=== PATIENT | female | born 1980 | race Caucasian/White ===

== ENCOUNTER → 2017-08-21 | Outpatient (CLI) | payer OTHER ==
[~2017-08-21] MED LIST: IBUP-1223 PO; None at this Time; OXYC-302 PO
== END | disposition home or self-care (01) ==
LOC: STAR 10:35
PROVIDERS: ATTEND Obstetrics & Gynecology
DX: Z02.9 Encounter for administrative examinations, unspecified (principal)

== ENCOUNTER 2017-08-29 10:51 | Inpatient (IN) | payer OTHER ==
[~2017-08-29] VITALS: Ht 160 cm; Wt 66.6 kg
[~2017-08-29 10:51] MED LIST changes: +GLYCOPYRROLATE 0.2MG/1ML, 5ML ONE; -IBUP-1223 PO; +NEOSTIGMINE 1 MG/ML, 10ML ONE; -OXYC-302 PO
[2017-08-29 12:12] VITALS: BP 105/68
[2017-08-29] MEDS ORDERED: LACTATED RINGERS 1,000 ML IV SCH ×2 (12:15→19:30)
[2017-08-29] MEDS ORDERED: OXYcodone IR 5MG TABLET PO ONE (12:30)
[2017-08-29] MEDS ORDERED: GABAPENTIN 300 MG CAPSULE PO ONE (12:30)
[2017-08-29] MEDS ORDERED: ONDANSETRON ODT 8 MG PO ONE (12:30)
[2017-08-29] MEDS ORDERED: ACETAMINOPHEN 500 MG TABLET PO ONE (12:30)
[2017-08-29] MEDS ORDERED: MIDAZOLAM 1 MG/ML, 2ML ONE (12:40)
[2017-08-29] MEDS ORDERED: FLUORESCEIN SODIUM 500 MG/5 ML ONE (12:44)
[2017-08-29] MEDS ORDERED: EPINEPHRINE 1 MG/ML, 1ML ONE (12:44)
[2017-08-29 12:58] LABS: HCG UR SG 1.009 (1.003-1.030)
[2017-08-29] MEDS ORDERED: ROCURONIUM 10MG/ML,5ML ONE (13:19)
[2017-08-29] MEDS ORDERED: CEFAZOLIN 1,000 MG ONE ×2 (13:19)
[2017-08-29] MEDS ORDERED: PROPOFOL 10 MG/ML, 20ML ONE (13:19)
[2017-08-29] MEDS ORDERED: DEXAMETHASONE 4 MG/ML, 1ML ONE ×2 (13:19→13:20)
[2017-08-29] MEDS ORDERED: FENTANYL PF 250 MCG/5ML ONE (13:19)
[2017-08-29] MEDS ORDERED: PROMETHAZINE 25 MG/ML, 1ML IV PRN (13:30)
[2017-08-29] MEDS ORDERED: MORPHINE SULFATE 4 MG/ML, 1ML IVPush PRN (13:30)
[2017-08-29] MEDS ORDERED: ALBUTEROL SULFATE 2.5 MG/3 ML NPPB PRN (13:30)
[2017-08-29] MEDS ORDERED: MEPERIDINE/PF 25MG/0.5ML IVPush PRN (13:30)
[2017-08-29] MEDS ORDERED: hydrALAzine 20 MG/ML, 1ML IV PRN (13:30)
[2017-08-29] MEDS ORDERED: FENTANYL PF 100 MCG/2ML IV PRN (13:30)
[2017-08-29] MEDS ORDERED: METOPROLOL 1 MG/ML, 5ML IV PRN (13:30)
[2017-08-29] MEDS ORDERED: LABETALOL 5MG/ML, 20ML IV PRN (13:30)
[2017-08-29] MEDS ORDERED: HALOPERIDOL 5 MG/ML IV PRN (13:30)
[2017-08-29] MEDS ORDERED: EPHEDRINE 50 MG/ML, 1ML IVPush PRN (13:30)
[2017-08-29] MEDS ORDERED: OXYcodone 5 MG/5 ML ORAL.SOL UDC PO PRN (13:30)
[2017-08-29] MEDS ORDERED: BUPIVACAINE/PF 0.5% INFIL ONE (14:06)
[2017-08-29] MEDS ORDERED: INDIGO CARMINE 0.8%, 5ML ONE (15:04)
[2017-08-29] MEDS ORDERED: ONDANSETRON 2MG/ML, 2ML ONE (17:20)
[2017-08-29] MEDS ORDERED: ONDANSETRON 2MG/ML, 2ML IVPush ONE (17:30)
[2017-08-29] MEDS ORDERED: ACETAMINOPHEN 650 MG SUPP PR PRN (19:30)
[2017-08-29] MEDS ORDERED: INSTRUCTION SEE COMMENTS XX PRN (19:30)
[2017-08-29] MEDS ORDERED: ONDANSETRON 2MG/ML, 2ML IV PRN (19:30)
[2017-08-29] MEDS ORDERED: ACETAMINOPHEN 325 MG TABLET PO PRN (19:30)
[2017-08-29] MEDS ORDERED: OXYcodone/APAP 5/325MG TABLET PO PRN (19:30)
[2017-08-29 19:35] VITALS: BP 112/70
[2017-08-29] MEDS ORDERED: ZOLPIDEM 5MG TABLET PO PRN (21:00)
[2017-08-29] MEDS: SIMETHICONE 80 MG CHEW TAB PO SCH (21:11)
[2017-08-29] MEDS: IBUPROFEN 600 MG TABLET PO SCH (21:11)
[2017-08-29] MEDS: SODIUM CHLORIDE FLUSH 10ML SYR IVF SCH (21:11)
[2017-08-29 23:44] VITALS: BP 90/56
[2017-08-30 03:58] VITALS: BP 93/56
[2017-08-30] MEDS: IBUPROFEN 600 MG TABLET PO SCH (07:35)
[2017-08-30 07:58] VITALS: BP 103/65
[2017-08-30] MEDS: SODIUM CHLORIDE FLUSH 10ML SYR IVF SCH (09:40)
[2017-08-30] MEDS: SIMETHICONE 80 MG CHEW TAB PO SCH (09:40)
[2017-08-30] MEDS ORDERED: OXYC-302 PO (11:27)
[2017-08-30] MEDS ORDERED: IBUP-1223 PO (11:27)
== END 2017-08-30 11:40 | disposition home or self-care (01) | DRG 743 ==
LOC: OUT 10:51 → 4NOR 18:09 → OUT 18:13 → DCLOUNGE 08-30 11:25
PROVIDERS: ADMIT Obstetrics & Gynecology; ATTEND Obstetrics & Gynecology
PROC: 0UT24ZZ Resection of Bilateral Ovaries, Percutaneous Endoscopic Approach (ICD-10-PCS; 2017-08-29)
PROC: 0UT74ZZ Resection of Bilateral Fallopian Tubes, Percutaneous Endoscopic Approach (ICD-10-PCS; 2017-08-29)
PROC: 0TJB8ZZ Inspection of Bladder, Via Natural or Artificial Opening Endoscopic (ICD-10-PCS; 2017-08-29)
PROC: 0UT94ZZ Resection of Uterus, Percutaneous Endoscopic Approach (ICD-10-PCS; principal; 2017-08-29 13:00)
DX: N80.0 Endometriosis of uterus (principal); N85.2 Hypertrophy of uterus; N94.6 Dysmenorrhea, unspecified; N92.0 Excessive and frequent menstruation with regular cycle; Z80.41 Family history of malignant neoplasm of ovary
CPT/HCPCS: 36415; 81025; 85014; 85018; 88307; J0171; J0690; J1100; J2250; J2405; J2704; J2710; J3010; J3490; Q0162; J7120